=== PATIENT | female | born 1960 | race Caucasian/White ===

== ENCOUNTER → 2018-07-20 | Day surgery (SDC) | payer BC ==
[~2018-07-20] MED LIST: ALPR0.254 PO; ESCITALOPRAM OX20 MG PO; FENT1PAT92 TD; HYDR-2769 PO; IV RINGERS,LACTATED 1000ML 1,000 ML IV SCH; LIDOCAINE 1% PF 2 ML VIAL. ID PRN; MIDAZOLAM HCL/PF 2 MG/2 ML VIAL. IV PRN; PROPOFOL 40 ML IV ONE; TRAZ-86 PO; fentaNYL PF VIAL 100 MCG/2 ML VIAL IV PRN
[2018-07-20 11:15] VITALS: BP 108/62
== END | disposition home or self-care (01) ==
LOC: SURG 09:27
PROVIDERS: ATTEND Internal Medicine Gastroenterology
DX: K57.30 Diverticulosis of large intestine without perforation or abscess without bleeding (principal); K64.0 First degree hemorrhoids; Z86.010 Personal history of colon polyps; Z82.3 Family history of stroke; Z83.71 Family history of colonic polyps; Z82.49 Family history of ischemic heart disease and other diseases of the circulatory system; Z80.0 Family history of malignant neoplasm of digestive organs; Z79.899 Other long term (current) drug therapy; Z98.890 Other specified postprocedural states; Z88.2 Allergy status to sulfonamides
CPT/HCPCS: 45378; J2704